=== PATIENT | female | born 1945 | race Caucasian/White ===

== ENCOUNTER 2021-05-17 13:16 | Emergency (ER) | payer MEDICARE ==
[2021-05-17 13:33] VITALS: BP 155/63
--- NOTE | 2021-05-17 13:52 | ED Physician Documentation ---
History of Present Illness - Stated complaint Stated Complaint: RIGHT EAR PX - Chief complaint Chief Complaint: Heent - Additonal information Additional information: 76-year-old female presents emergency department for muffled hearing in her right ear. This has been ongoing for about 4 days since she traveled here from [facility]. She denies loss of hearing or ear pain or drainage. She does have chronic tinnitus however. No recent cough cold or congestion. Review of Systems Constitutional: denies: Fever, Chills Eyes: reports: Reviewed and negative Ears: reports: Tinnitus/ringing, Other (muffled hearing). denies: Ear pain, Drainage/discharge Nose: reports: Reviewed and negative Throat: reports: Reviewed and negative Cardiac: reports: Reviewed and negative Respiratory: reports: Reviewed and negative GI: reports: Reviewed and negative PD PAST MEDICAL HISTORY - Allergies Allergies/Adverse Reactions: Allergies Allergy/AdvReac Type Severity Reaction Status Date / Time Sulfa (Sulfonamide Allergy Headache Verified 05/17/21 13:33 Antibiotics) PD ED PE EXPANDED - General General: Alert, No acute distress - HEENT HEENT: Atraumatic, PERRL, EOMI, Moist mucous membranes, Pharynx normal, Other (narrow ear canals bilaterally; cerumen removed from Right EAC. tiny effusion behind right TM). No: Right frontal sinus TTP, Left frontal sinus TTP, Right maxillary sinus TTP, Left maxillary sinus TTP, Nasal congestion, Rhinorrhea Results - Vitals Vitals: Vital Signs - 24 hr 05/17/21 13:25 Temperature 36.3 C L Heart Rate 71 Respiratory 16 Rate Blood Pressure 155/63 H O2 Saturation 99 Oxygen O2 Source Room air PD MEDICAL DECISION MAKING - ED course Complexity details: d/w patient ED course: 76-year-old female presents emergency department for evaluation of 3 days of muffled hearing and ear pressure in the right ear. This occurred after traveling here from [facility] in a car. This has been recurrent problem for her many times in the past. There is a moderate amount of cerumen in the right ear canal which was removed. Following this she was noted to have a very small effusion behind the TM. She was able to partially clear the muffled hearing using Valsalva maneuver. I suspect partial eustachian tube obstruction. I have recommended Flonase nasal spray or Benadryl at night. Emergent return precautions discussed for concerns of infection. Continue follow-up with PCP when she returns to [place]. Departure - Departure Disposition: 01 Home, Self Care Clinical Impression: Dysfunction of right eustachian tube Condition: Stable Record reviewed to determine appropriate education?: Yes Instructions: ED Obstruction Eustachian Tube Ch Comments: Pat you were seen in the emergency department today for muffled hearing in your right ear. There is no inner ear infection. We did remove some cerumen from your ear canal. However what you most likely have is obstruction of your eustachian tube. I do recommend that you use Flonase nasal spray when you get out of the showers in the morning. Otherwise using some Benadryl at night can help unblock your eustachian tube. If at any point you develop fevers, have sudden ear pain or ear drainage then please return immediately to the ER for second evaluation.
== END 2021-05-17 13:55 | disposition home or self-care (01) ==
LOC: ED 13:16
DX: H69.81 Other specified disorders of Eustachian tube, right ear (principal)
CPT/HCPCS: 99281; 99282